=== PATIENT | female | born 1975 | race Caucasian/White ===

== ENCOUNTER 2017-03-05 02:18 | Emergency (ER) | payer SELFPAY ==
[~2017-03-05] VITALS: Ht 165.1 cm; Wt 61.0 kg
[2017-03-05 02:25] VITALS: Ht 165.1 cm; Wt 61.0 kg
== END 2017-03-05 04:06 | disposition left against medical advice (07) ==
LOC: FTE 02:18
DX: Z53.21 Procedure and treatment not carried out due to patient leaving prior to being seen by health care provider (principal)